=== PATIENT | male | born 1960 | race Caucasian/White ===

== ENCOUNTER 2017-06-09 20:19 | Emergency (ER) | payer OTHER ==
[~2017-06-09] VITALS: Ht 167.6 cm; Wt 95.2 kg
[~2017-06-09 20:19] MED LIST: AMLO10/40 PO; AMOCLA875 PO; HYDACE5 PO; ONDA8 PO
[2017-06-09] MEDS ORDERED: METF500 PO (20:31)
[2017-06-09] MEDS ORDERED: CHOLESTEROL (20:32)
[2017-06-09] MEDS ORDERED: LISI5 PO (20:32)
== END 2017-06-09 22:12 | disposition home or self-care (01) ==
LOC: ER 20:19
DX: S67.21XA Crushing injury of right hand, initial encounter (principal); S67.190A Crushing injury of right index finger, initial encounter; S60.412A Abrasion of right middle finger, initial encounter; Z23 Encounter for immunization; Z79.899 Other long term (current) drug therapy; Z79.84 Long term (current) use of oral hypoglycemic drugs; W23.1XXA Caught, crushed, jammed, or pinched between stationary objects, initial encounter
CPT/HCPCS: 29130; 73130; 90471; 90714; 99283